=== PATIENT | male | born 1950 | race Caucasian/White ===

== ENCOUNTER 2017-01-11 08:42 | Emergency (ER) | payer MEDICARE, MEDICAID ==
--- NOTE | 2017-01-11 09:20 | ED Physician Chart ---
Chief Complaint/HPI - Patient Information Date Seen:: 01/11/17 Time Seen:: 09:00 History of Present Illness:: THIS IS A 66 YO MALE BIB HIS [id number] FOR AN EVALUATION OF HIS RIGHT INGUINAL AREA PAIN AND A LUMP. HE DENIES FEVER, NAUSEA, VOMITING AND DIABETES. HE ALSO DENIES HYPERTENSION AND HEART DISEASE. HE DENIES HAVING ANY PROBLEMS WITH PAIN OR INFECTION OF THE GROIN AREA. Allergies:: Allergies Allergy/AdvReac Type Severity Reaction Status Date / Time No Known Allergies Allergy Verified 01/11/17 08:54 Vitals:: Vital Signs - 8 hr 01/11/17 08:54 Temp 98.2 F HR 88 RR 16 BP 141/86 O2 Sat % 100 Historian:: Patient, Family Member Review:: Nurse's Note Reviewed Review of Systems - Review of Systems General/Constitutional: No fever, No chills, No weight loss, No weakness, No diaphoresis, No edema, No loss of appetite Skin: No skin lesions, No rash, No bruising Head: No headache, No light-headedness Eyes: No loss of vision, No pain, No diplopia ENT: No earache, No nasal drainage, No sore throat, No tinnitus Neck: No neck pain, No swelling, No thyromegaly, No stiffness, No mass noted Cardio Vascular: No chest pain, No palpitations, No PND, No orthopnea, No edema Pulmonary: No SOB, No cough, No sputum, No wheezing GI: No nausea, No vomiting, No diarrhea, No pain, No melena, No hematochezia, No constipation, No hematemesis G/U: No dysuria, No frequency, No hematuria, Other (TENDERNESS ) Musculoskeletal: No bone or joint pain, No back pain, No muscle pain Endocrine: No polyuria, No polydipsia Psychiatric: No prior psych history, No depression, No anxiety, No suicidal ideation Hematopoietic: No bruising, No lymphadenopathy Allergic/Immuno: No urticaria, No angioedema Neurological: No syncope, No focal symptoms, No weakness, No paresthesia, No headache, No seizure, No dizziness, No confusion, No vertigo Past Medical History - Past Medical History Obtainable: Yes Past Medical History: No significant medical hx Family History: None Social History: Smoker, Alcohol, Illicit Drug Use Surgical History: None Psychiatricy History: None Medication: Reviewed Family Medical History - Family Member Mother History Unknown: Yes Hx Family Cancer: No Hx Family Coronary Artery Disease: No Hx Family Diabetes: No Hx Family Seizures: No Hx Family Dementia: No Hx Family AIDS: No Hx Family COPD: No Hx Family Psychiatric Problems: No Physical Exam - Physical Examination General/Constitutional: Awake, Well-developed, well-nourished, Alert, No distress, GCS 15, Non-toxic appearing, Ambulatory Other Gen/Cons comments:: HYPER Head: Atraumatic Eyes: Lids, conjuctiva normal, PERRL, EOMI Skin: Nl inspection, No rash, No skin lesions, No ecchymosis, Well hydrated, No lymphadenopathy ENMT: External ears, nose nl, Nasal exam nl, Lips, teeth, gums nl Neck: Nontender, Full ROM w/o pain, No JVD, No nuchal rigidity, No bruit, No mass, No stridor Respiratory: Nl effort/Exclusion, Clear to Auscultation, No Wheeze/Rhonchi/Rales Cardio Vascular: RRR, No murmur, gallop, rubs, NL S1 S2 GI: No tenderness/rebounding/guarding, No organomegaly, No hernia, Normal BS's, Nondistended, No mass/bruits, No McBurney tenderness Other GI comments:: TENDERNESS NODE IN THE RIGHT INQUINAL AREA. : No CVA tenderness Extremities: No tenderness or effusion, Full ROM, normal strength in all extremities, No edema, Normal digits & nails Neuro/Psych: Alert/oriented, DTR's symmetric, Normal sensory exam, Normal motor strength, Judgement/insight normal, Mood normal, Normal gait, No focal deficits Misc: normal gait, Normal back, No paraspinal tenderness Labs/Radiology/EKG Results - EKG Interpretations EKG Time:: 09:23 Rate & Rhythm: RATE=77, NSR [place]: LEFT AXIS Assessment - Assessment General Assessment: THE PATIENT'S RIGHT GROIN TENDERNESS ARE SWOLLEN NODES. HE HAS SOME EARLY INFECTION OF HIS LOWER LEG AND WILL GET ZITHROMYCIN TO SEE IF THE SWELLING AND TENDERNESS STOPS ED Septic Shock - . Is Septic Shock (SBP<90, OR Lactate>4 mmol\L) present?: No - <6hrs of presentation: Vital Signs: Vital Signs - 8 hr 01/11/17 08:54 Temp 98.2 F HR 88 RR 16 BP 141/86 O2 Sat % 100 Reassessment (Disposition) - Reassessment Reassessment Condition:: Unchanged - Diagnosis Diagnosis:: RIGHT INQUINAL ADENITIS - Aftercare/Follow up Instructions Aftercare/Follow-Up Instructions:: Counseled pt regarding lab results/diagnosis & need follow up, Refer to Discharge Instructions, Counseled pt & family regarding lab results/diagnosis & need follow up - Patient Disposition Discharge/Transfer:: Home Condition at Disposition:: Unchanged ED Discharge Plan - Patient Disposition Instructions: Lymphadenopathy
--- NOTE | 2017-01-11 09:31 | Diagnostic Imaging Report ---
Portable chest x-ray History: Shortness of breath Allowing for portable technique the heart size is normal. No focal pulmonary parenchymal processes. No hilar or mediastinal abnormalities. Impression: No acute abnormalities.
[2017-01-11 09:34] LABS: % BASOPHILS 0.1 % (0.0-2.0); % LYMPHOCYTES 22.9 % (20.0-50.0); % MONOCYTES 7.6 % (2.0-10.0); % NEUTROPHILS 66.4 % (40.0-80.0); HEMATOCRIT 49.5 % (39.0-49.0); HEMOGLOBIN 15.8 gm/dL (12.6-17.4); MEAN CELL VOLUME 91.5 fl (80-99); MEAN CORPUSCULAR HEMOGLOBIN 29.3 pg (27.0-31.0); MEAN PLATELET VOLUME 8.6 fl; NEUTROPHILE ABSOLUTE 5.1 Th/cmm (1.8-8.0); PLATELET COUNT 259 Th/cmm (150-400); RED BLOOD COUNT 5.41 Mil/cmm (3.80-5.80); RED CELL DISTRIBUTION WIDTH 13.5 % (11.5-20.0); WHITE BLOOD COUNT 7.7 Th/cmm (4.8-10.8)
[2017-01-11 09:49] LABS: INR 0.95 (0.5-1.4); PROTHROMBIN TIME (TEST) 9.9 SECONDS (9.5-11.5)
[2017-01-11 09:51] LABS: ALB/GLOB RATIO 1.5 (1.0-1.8); ALKALINE PHOSPHATASE 53 U/L (34-104); BILIRUBIN,TOTAL 0.3 mg/dL (0.3-1.0); BUN - UREA NITROGEN 19 mg/dL (7-25); BUN/CREATININE RATIO 23.8; CALCIUM SERUM 9.6 mg/dL (8.6-10.3); CARBON DIOXIDE 24.3 mEq/L (21.0-31.0); CHLORIDE 105 mEq/L (98-107); CREATININE - SERUM 0.8 mg/dL (0.7-1.3); GLUCOSE 122 mg/dL (70-105); POTASSIUM SERUM 4.3 mEq/L (3.5-5.1); SGOT 14 U/L (13-39); SGPT/ALT 15 U/L (7-52); SODIUM SERUM 133 mEq/L (136-145)
[2017-01-11 09:52] LABS: CHOLESTEROL 197 mg/dL (<200); TRIGLYCERIDES 126 mg/dL (<150)
[2017-01-11 10:00] LABS: URINE BILIRUBIN NEGATIVE (NEGATIVE); URINE BLOOD TRACE (NEGATIVE); URINE COLOR LIGHT YELLOW; URINE GLUCOSE (UA) NEGATIVE (NEGATIVE); URINE KETONE NEGATIVE (NEGATIVE)
[2017-01-11 10:01] LABS: URINE PROTEIN NEGATIVE (NEGATIVE); URINE UROBILINOGEN 0.2 E.U./dL (0.2 - 1.0)
[2017-01-11 10:04] LABS: URINE BACTERIA FEW /hpf (NONE SEEN); URINE EPITHELIAL CELLS RARE /lpf (FEW); URINE RBC 0-2 /hpf (0-5); URINE WBC NONE SEEN /hpf (0-5)
[2017-01-11 10:05] LABS: URINE AMORPHOUS SEDIMENT MODERATE PHOSPHATES (NONE SEEN)
[2017-01-11 10:11] LABS: AMPHETAMINE URINE NEGATIVE (NEGATIVE); BARBITURATES URINE NEGATIVE (NEGATIVE); METHADONE URINE NEGATIVE (NEGATIVE)
== END 2017-01-11 10:40 | disposition home or self-care (01) ==
LOC: ER 08:42
DX: I88.9 Nonspecific lymphadenitis, unspecified (principal); F17.200 Nicotine dependence, unspecified, uncomplicated
CPT/HCPCS: 36415-UA; 71010-TC; 80053-TC; 80061-TC; 80307; 81001-TC; 84443-TC; 84484-TC; 85025-TC; 85610-TC; 85730-TC; 86592-TC; 86593-TC; 93005